=== PATIENT | male | born 1995 | race Caucasian/White ===

== ENCOUNTER 2017-09-23 05:32 | Outpatient (CLI) | payer BC ==
[~2017-09-23] VITALS: Ht 185.4 cm; Wt 74.8 kg
== END 2017-09-23 10:36 ==
LOC: PREOP 05:32
PROVIDERS: ATTEND Otolaryngology Otolaryngology/Facial Plastic Surgery
DX: Z01.818 Encounter for other preprocedural examination (principal)

== ENCOUNTER 2017-09-30 06:03 | Day surgery (SDC) | payer BC ==
[~2017-09-30] VITALS: Ht 185.4 cm; Wt 74.8 kg
--- OUTSIDE RECORDS SUMMARY | 2017-09-30 06:10 | XMS REPORT | Continuity of Care Document ---
Author Author [facility] Organization [facility] Address Unknown Phone Unavailable Allergies Active Description Code Type Severity Reaction Onset Reported/Identified Relationship to Patient Clinical Status Yes No Known Drug Allergies [id number] Drug Allergy Unknown N/A 09/23/2017 Medications There is no data. Problems Date Dx Coded Attending Type Code Diagnosis Diagnosed By 02/02/2014 PRETTY MEREDITH MD Ot 831.01 ANT DISLOC HUMERUS-CLOSE 02/02/2014 PRETTY MEREDITH MD Ot 959.2 SHLDR/UPPER ARM INJ NOS 02/02/2014 PRETTY MEREDITH MD Ot E000.8 OTHER EXTERNAL CAUSE STATUS 02/02/2014 PRETTY MEREDITH MD Ot E007.0 ACTIVITIES INVOLVING CITIZEN [place] 02/02/2014 PRETTY MEREDITH MD Ot E849.4 ACCID IN RECREATION AREA 02/02/2014 PRETTY MEREDITH MD Ot E917.0 STRUCK IN SPORTS 09/23/2017 VINCENT RUBIN MD Ot Z01.818 ENCOUNTER FOR OTHER PREPROCEDURAL EXAMIN Procedures There is no data. Results There is no data. Encounters ACCT No. Visit Date/Time Discharge Status Pt. Type Provider Facility Loc./Unit Complaint [id number] 09/23/2017 05:32:00 09/23/2017 10:36:00 DIS Outpatient VINCENT RUBIN MD [facility] PREOP RECURRING CHRONIC TONSILLITIS [id number] 02/02/2014 21:28:00 02/02/2014 23:46:00 DIS Emergency PRETTY MEREDITH MD [facility] ER L SHOULDER DISLOCATION [id number] 09/30/2017 08:15:00 PEN Preadmit VINCENT RUBIN MD [facility] SDC RECURRING CHRONIC TONSILLITIS
[2017-09-30 06:20] VITALS: BP 137/78
[2017-09-30 06:25] LABS: BASOPHILS % (AUTO) 0 % (0-10); EOSINOPHILS # (AUTO) 0.1 10^3/uL (0.0-0.3); EOSINOPHILS % (AUTO) 2 % (0-10); HEMATOCRIT 43 % (40-54); HEMOGLOBIN 15.2 G/DL (13.3-17.7); LYMPHOCYTES # (AUTO) 2.4 X 10^3 (1.0-4.0); LYMPHOCYTES % (AUTO) 51 % (12-44); MEAN CORPUSCULAR HEMOGLOBIN 28 PG (25-34); MEAN CORPUSCULAR HGB CONC 35 G/DL (32-36); MEAN CORPUSCULAR VOLUME 79 FL (80-99); MEAN PLATELET VOLUME 9.8 FL (7.4-10.4); MONOCYTES # (AUTO) 0.5 X 10^3 (0.0-1.0); MONOCYTES % (AUTO) 10 % (0-12); NEUTROPHILS # (AUTO) 1.7 X 10^3 (1.8-7.8); NEUTROPHILS % (AUTO) 37 % (42-75); PLATELET COUNT 258 10^3/uL (130-400); RED BLOOD COUNT 5.47 10^6/uL (4.35-5.85); RED CELL DISTRIBUTION WIDTH 13.2 % (10.0-14.5); WHITE BLOOD COUNT 4.7 10^3/uL (4.3-11.0)
[2017-09-30] MEDS ORDERED: FAMOTIDINE 20MG/2ML IV (PEPCID) ONE (06:33)
[2017-09-30] MEDS ORDERED: FAMOTIDINE 20MG/2ML IV (PEPCID) IVP ONE (06:45)
[2017-09-30] MEDS: LACTATED RINGERS 1,000 ML IV PRN ×2 (06:46→07:28)
[2017-09-30] MEDS ORDERED: MIDAZOLAM 2 MG/2 ML (VERSED) VIAL ONE (06:57)
[2017-09-30] MEDS ORDERED: fentaNYL INJECTION 100 MCG/2 ML AMP ONE (06:58)
--- NOTE | 2017-09-30 07:12 | Progress Note-Pre Operative ---
Pre-Operative Progress Note H&P Reviewed The H&P was reviewed, patient examined and no changes noted. Date Seen by Provider: September 30, 2017 Time Seen by Provider: 06:45 Date H&P Reviewed: September 30, 2017 Time H&P Reviewed: 06:45 Pre-Operative Diagnosis: Rec Tons/ Tons Hyper VINCENT RUBIN MD September 30, 2017 7:12 am
[2017-09-30] MEDS ORDERED: NEOSTIGMINE 1 MG/ML 5 ML SYRINGE ONE (07:27)
[2017-09-30] MEDS ORDERED: ROCURONIUM 10 MG/ML 5 ML SYRINGE IV ONE (07:27)
[2017-09-30] MEDS ORDERED: GLYCOPYRROLATE 0.2 MG/ML (ROBINUL) 2 ML VIAL ONE (07:27)
[2017-09-30] MEDS ORDERED: proPOfol 200 MG/20 ML (DIPRIVAN) VIAL IV ONE (07:27)
[2017-09-30] MEDS ORDERED: DEXAMETHASONE 10 MG/ML (DECADRON) 1 ML VIAL ONE (07:27)
[2017-09-30] MEDS ORDERED: ONDANSETRON 4 MG/2 ML (SDV) Z0FRAN ONE (07:27)
[2017-09-30] MEDS ORDERED: SEVOFLURANE (ULTANE) 15 ML INHAL SOLN ONE (07:27)
[2017-09-30] MEDS ORDERED: LIDOCAINE PF 2% 5 ML (XYLOCAINE) VIAL ONE (07:27)
[2017-09-30] MEDS ORDERED: NS IV 1000 ML 1,000 ML IV SCH (07:34)
--- NOTE | 2017-09-30 07:34 | Progress Note-Post Operative ---
Post-Operative Progess Note Surgeon (s)/Supervisor [facility] (s) Surgeon VINCENT RUBIN MD Supervisor [facility] n/a Pre-Operative Diagnosis Rec Tons/ Tons Hyper Post-Operative Diagnosis same Post-Op Procedure Note Date of Procedure: September 30, 2017 Name of Procedure Performed: Tonsillectomy Description & Findings Description and Findings: n/a Anesthesia Type get Estimated Blood Loss minimal Packing none. Specimen(s) collected/removed tonsils VINCENT RUBIN MD September 30, 2017 7:34 am
[2017-09-30] MEDS ORDERED: APAP 325 MG/10.15 ML LIQ (TYLENOL) UDC PO PRN (07:45)
[2017-09-30] MEDS ORDERED: HYDROcodone/APAP 7.5MG-325 MG/15 ML (LORTAB) UDC PO PRN (07:45)
[2017-09-30] MEDS ORDERED: morphine INJ 4 MG/ML 1 ML (VIAL/SYRINGE) ONE (07:59)
[2017-09-30] MEDS ORDERED: HYDROmorphone 1 MG/ML (DILAUDID) 1 ML SYRINGE IV PRN (08:00)
[2017-09-30] MEDS ORDERED: morphine INJ 10 MG/ML 1ML (SYR OR VIAL) IVP PRN (08:00)
[2017-09-30] MEDS ORDERED: ONDANSETRON 4 MG/2 ML (SDV) Z0FRAN IVP PRN (08:00)
[2017-09-30 08:35] VITALS: BP 124/64
[2017-09-30] MEDS ORDERED: AMOX250S5 PO (08:59)
[2017-09-30] MEDS ORDERED: HYDR15SO8 PO (08:59)
[2017-09-30] MEDS ORDERED: TETRACAINESUCKERS MT (08:59)
[2017-09-30] MEDS ORDERED: DEXAINTSOL PO (08:59)
[2017-09-30 09:05] VITALS: BP 112/61
--- NOTE | 2017-09-30 09:23 | Anesthesia-General Post-Op ---
General Patient Condition Mental Status/LOC: Same as Preop Cardiovascular: Satisfactory Nausea/Vomiting: Absent Respiratory: Satisfactory Pain: Controlled Complications: Absent Post Op Complications Complications None Follow Up Care/Instructions Patient Instructions None needed. Anesthesia/Patient Condition Patient Condition Patient is doing well, no complaints, stable vital signs, no apparent adverse anesthesia problems. No complications reported per nursing. DEMI LARA CRNA September 30, 2017 09:23
[2017-09-30 09:35] VITALS: BP 116/62
[2017-09-30 10:20] VITALS: BP 116/62
== END 2017-09-30 10:35 | disposition home or self-care (01) ==
LOC: SDC 06:03
PROVIDERS: ATTEND Otolaryngology Otolaryngology/Facial Plastic Surgery
DX: J35.01 Chronic tonsillitis (principal); J35.3 Hypertrophy of tonsils with hypertrophy of adenoids
CPT/HCPCS: 36415; 85025; 87081; 88304